=== PATIENT | female | born 1965 | race Hispanic/Latino ===

== ENCOUNTER 2020-11-19 17:49 | Emergency (ER) | payer OTHER ==
[~2020-11-19] VITALS: Ht 165.1 cm; Wt 59.0 kg
[2020-11-19 17:50] VITALS: BP 120/59
[2020-11-19] MEDS ORDERED: KETOROLAC 30MG VIAL (30MG/ML) IM ONE (18:30)
[2020-11-19 19:42] VITALS: BP 128/67
[2020-11-19] MEDS ORDERED: CYCL10 PO (21:08)
[2020-11-19] MEDS ORDERED: NAPR500T6 PO (21:08)
[2020-11-19 21:24] VITALS: BP 121/62
== END 2020-11-19 21:34 | disposition home or self-care (01) ==
LOC: EDH 17:49
DX: S32.019A Unspecified fracture of first lumbar vertebra, initial encounter for closed fracture (principal); Z79.1 Long term (current) use of non-steroidal anti-inflammatories (NSAID); W18.39XA Other fall on same level, initial encounter; Y93.89 Activity, other specified; Y92.89 Other specified places as the place of occurrence of the external cause; Y99.8 Other external cause status
CPT/HCPCS: 72100; 72131; 96372; 99284; J1885